=== PATIENT | male | born 1945 | race Asian ===

== ENCOUNTER 2017-07-07 06:15 | Day surgery (SDC) | payer MEDICARE, OTHER ==
[~2017-07-07] VITALS: Ht 160 cm; Wt 71.4 kg
[2017-07-07] MEDS ORDERED: BENZOCAINE 20% 50 MCG/SPRAY 57 GM TP ONE (06:16)
[2017-07-07] MEDS ORDERED: LIDOCAINE HCL 4% 50 ML SOLUTION TP ONE (06:16)
[2017-07-07] MEDS ORDERED: ALBUTEROL SULFATE 2.5 MG/0.5 ML NEB SOLUTION NEB ONE (06:16)
[2017-07-07] MEDS ORDERED: LIDOCAINE HCL 2% 30 ML JELLY TP ONE (06:16)
[2017-07-07] MEDS ORDERED: SODIUM CHLORIDE 0.9% 1,000 ML IV ONE ×2 (06:30→06:31)
[2017-07-07] MEDS ORDERED: VALS1TAB81 PO (07:24)
[2017-07-07] MEDS ORDERED: SIMV-261 PO (07:24)
[2017-07-07] MEDS ORDERED: DOCU250C91 PO (07:24)
[2017-07-07] MEDS ORDERED: ALLO300 PO (07:24)
[2017-07-07] MEDS ORDERED: MONT10TA21 PO (07:24)
[2017-07-07] MEDS ORDERED: FERR-89 PO (07:24)
[2017-07-07 08:08] LABS: GLUCOMETER DEV NAME(LOC) SDS 5; GLUCOSE,POINT OF CARE 101 MG/DL (70-110)
[2017-07-07] MEDS ORDERED: FentaNYL CITRATE-PF 100 MCG/2 ML VIAL ONE (08:14)
[2017-07-07] MEDS ORDERED: MIDAZOLAM HCL 2 MG/2 ML VIAL ONE (08:14)
[2017-07-07] MEDS ORDERED: MethylPREDNISolone SOD SUCC 125 MG/2 ML VIAL IVP ONE (09:00)
[2017-07-07] MEDS ORDERED: MethylPREDNISolone SOD SUCC 125 MG/2 ML VIAL ONE (09:25)
[2017-07-07] MEDS ORDERED: OXYGEN THERAPY IH SCH (20:00)
== END 2017-07-07 10:20 | disposition home or self-care (01) ==
LOC: SURGERY 06:15
PROVIDERS: ATTEND Internal Medicine Critical Care Medicine
DX: J38.4 Edema of larynx (principal); B37.0 Candidal stomatitis; G47.33 Obstructive sleep apnea (adult) (pediatric); J44.9 Chronic obstructive pulmonary disease, unspecified; K21.9 Gastro-esophageal reflux disease without esophagitis; F32.9 Major depressive disorder, single episode, unspecified; I10 Essential (primary) hypertension; E11.9 Type 2 diabetes mellitus without complications; Z98.49 Cataract extraction status, unspecified eye; Z79.899 Other long term (current) drug therapy; Z88.7 Allergy status to serum and vaccine; Z72.89 Other problems related to lifestyle; Z98.890 Other specified postprocedural states
CPT/HCPCS: 31623; 31624; 71045; 82962; 87015; 87070; 87205; 87220; 88108; 88312; J2250; J2930; J3010; J7030